=== PATIENT | female | born 1960 | race Caucasian/White ===

== ENCOUNTER 2019-02-06 10:40 | Emergency (ER) | payer SELFPAY ==
[2019-02-06] MEDS ORDERED: Ketorolac Tromethamine 30 MG/ML VIAL ONE (12:27)
== END 2019-02-06 13:52 | disposition home or self-care (01) ==
LOC: ERS 10:48
DX: M62.838 Other muscle spasm (principal); Z79.899 Other long term (current) drug therapy
CPT/HCPCS: 96372; 99283; J1885

== ENCOUNTER 2020-04-14 15:07 | Outpatient (CLI) | payer OTHER ==
--- NOTE | 2020-04-14 16:01 | RAD ---
RIGHT SHOULDER TWO VIEWS: 04/14/20 HISTORY: Disability exam. Some mild arthrosis of the AC and some minimal changes of the glenohumeral joint space. No fractures or other findings. IMPRESSION: Mild arthritic change of the shoulder. POS: [facility]
--- NOTE | 2020-04-14 16:04 | RAD ---
CERVICAL SPINE SERIES TWO VIEWS: 04/14/20 HISTORY: Disability exam. Bones appear somewhat demineralized. There is bony fusion at the C5-6 level. There is mild disc narro wing at C6-7. Degenerative facet changes are seen along the course of the spine. IMPRESSION: Arthritic changes of the spine. POS: [facility]
== END 2020-04-14 15:08 | disposition home or self-care (01) ==
LOC: BICRAD 15:07
PROVIDERS: ATTEND Internal Medicine
DX: Z02.71 Encounter for disability determination (principal); M19.011 Primary osteoarthritis, right shoulder; M46.92 Unspecified inflammatory spondylopathy, cervical region
CPT/HCPCS: 72040

== ENCOUNTER 2021-05-01 01:04 | Emergency (ER) | payer SELFPAY ==
[2021-05-01] MEDS ORDERED: EPINEPHrine 1 MG/10 ML Abboject SYRINGE ONE (01:10)
[2021-05-01] MEDS ORDERED: Sodium Bicarb 50 MEQ/50 ML Abboject 8.4% SYRINGE ONE (01:10)
== END 2021-05-01 01:22 | disposition expired ==
LOC: ERS 01:04
DX: I46.9 Cardiac arrest, cause unspecified (principal)
CPT/HCPCS: 92950; J0171